=== PATIENT | female | born 1990 | race Caucasian/White ===

== ENCOUNTER → 2021-09-06 18:53 | Outpatient (CLI) | payer SELFPAY | PROVIDERS: Visit Provider Nurse Practitioner Obstetrics & Gynecology | DX: N39.0 Urinary tract infection, site not specified (principal); B96.20 Unspecified Escherichia coli [E. coli] as the cause of diseases classified elsewhere | CPT/HCPCS: 87086; 87088; 87186 ==

== ENCOUNTER → 2022-06-13 09:56 | Outpatient (CLI) | payer OTHER, SELFPAY ==
--- NOTE | 2022-06-13 13:08 | CT_ITS ---
FINAL REPORT TECHNIQUE: Then section axial CT images of the chest were obtained with contrast. Three-D reformatted images were also obtained.This study was performed with techniques to keep radiation doses as low as reasonably achievable (ALARA). Individualized dose reduction techniques using automated exposure control or adjustment of mA and/or kV according to the patient''s size were employed. CLINICAL HISTORY: dyspnea/tachy FINDINGS: There is no evidence of pulmonary embolism. There is no evidence of thoracic aortic aneurysm or dissection. There is no evidence of mediastinal or hilar mass or adenopathy. There is no evidence of pulmonary mass or suspicious nodule. No localized inflammatory process is seen within the lungs. Limited images of the upper abdomen are unremarkable. IMPRESSION: 1. No evidence of pulmonary embolism. 2. No mass or localized inflammatory process. Reviewed, Interpreted and Dictated by Leon Richards III, MD Transcribed by Niraj Do Authenticated and [facility]
--- NOTE | 2022-06-13 14:58 | CA_ITS ---
APPROVED REPORT EXAM: Comprehensive 2D, Doppler, and color-flow Echocardiogram Binding Printer: Dominga Ellison RVT Ht: 5 ft 7 in Wt: 122lbs BSA: 1.64 BP: 138/96 mmHg Indications: PALPS,TACHYCARDIA,HX MVP,ELAM 2D Dimensions LVOT 1.89 cm (M/F) 1.5-2.5 M-Mode Dimensions RVDd 1.42 cm (0.9-2.6) LA Diam 2.72 cm (1.9-4.0) LVDd 4.23 cm (3.5-5.7) Ao Diam 2.70 cm (2.0-3.7) LVDs 2.68 cm (3.5-5.7) IVSd 0.54 cm (0.6-1.1) PWd 0.46 cm (0.6-1.1) EF (Teich) 66.80% FS 36.60% EDV (Teich) 79.90 mL ESV (Teich) 26.50 mL LV Diastology E Decel Time 150.00 (160-240 msec) E/A Ratio 0.9 Aortic Valve AO Peak GR. 3.40 mmHg Mitral Valve MV E Max Mitch. 75.00 (40-130 cm/s) MV A Velocity 87.00 (40-130 cm/s) E/A Ratio 0.86 MV Decel. Time 150.00 (160-240 ms) MV PHT 44.00 ms Pulmonary Valve PV Peak Velocity 65.00 (50-150 cm/s) Left Ventricle Left atrium is normal size, left ventricle is normal size, there is no concentric left ventricular hypertrophy, estimated ejection fraction 55% with no regional wall motion abnormality. Diastolic parameters are inconclusive in the study. Right Ventricle Right atrium and right ventricle are normal size and contractility. Aortic Valve Aortic valve is grossly normal there is no aortic stenosis or aortic insufficiency. Mitral Valve Mitral valve is grossly normal, there is no obvious mitral valve prolapse, there is trace mitral regurgitation. Tricuspid Valve Tricuspid valve is grossly normal, there is trace tricuspid regurgitation, tricuspid regurgitation jet velocity is inadequate for calculation of the right ventricular systolic pressure. Pulmonic Valve Pulmonic valve is poorly visualized. Great Vessels Aortic root is normal size. Inferior vena cava is normal size with normal inspiratory collapse. Pericardium No significant pericardial effusion noted. Conclusion 1. Normal left ventricular size, preserved left ventricular systolic function, estimated ejection fraction 55% with no regional wall motion abnormality, diastolic parameters are within normal range. 2. No obvious mitral valve prolapse seen, there is trace mitral regurgitation. 3. No significant pericardial effusion noted. 4. Inferior vena cava normal size with normal inspiratory collapse. Electronically signed by : Reynaldo Segura MD 06/13/2022 20:37:19
== END ==
PROVIDERS: Visit Provider Nurse Practitioner
DX: R06.00 Dyspnea, unspecified (principal); R00.0 Tachycardia, unspecified
CPT/HCPCS: 71275; 93270; 93306; Q9967

== ENCOUNTER → 2022-06-14 07:06 | Outpatient (CLI) | payer OTHER, SELFPAY ==
[2022-06-14 07:51] LABS: Basophils # 0.1 K/mm3 (0-0.2); Basophils % 1.3 % (0.1-2.0); Eosinophils # 0.1 K/mm3 (0.0-0.4); Eosinophils % 1.1 % (0.1-12.0); Hematocrit 32.4 % (37.0-47.0); Hemoglobin 9.2 g/dL (12.2-16.2); Lymphocytes # 1.8 K/mm3 (0.7-4.5); Lymphocytes % 27.5 % (10-50); Mean Corpuscular HGB Conc 28.4 g/dL (31.8-35.4); Mean Corpuscular Hemoglobin 19.7 pg (27.0-31.2); Mean Corpuscular Volume 69.3 fl (81-99); Mean Platelet Volume 8.3 fl (7.4-10.4); Monocytes # 0.3 K/mm3 (0.1-1.0); Monocytes % 4.7 % (1.7-9.3); Neutrophils # 4.3 K/mm3 (1.8-7.8); Neutrophils % 65.4 % (37.0-80.0); Platelet Count 368 K/mm3 (142-424); Red Blood Count 4.68 M/mm3 (4.20-5.40); Red Cell Distribution Width 18.6 % (11.5-17.5); White Blood Count 6.5 K/mm3 (4.8-10.8)
[2022-06-14 09:42] LABS: Alanine Aminotransferase 12 U/L (12-78); Albumin Level 4.3 g/dl (3.5-5.0); Alkaline Phosphatase 46 U/L (38-126); Anion Gap 17.6 mEq/L (5-15); Aspartate Amino Transferase 22 U/L (14-36); Bilirubin,Direct 0.2 mg/dl (0.0-0.4); Bilirubin,Indirect 0.1 mg/dL (0.0-0.9); Bilirubin,Total 0.3 mg/dl (0.2-1.3); Bilirubin,Unconjugated 0.2 mg/dL (0.0-1.1); Blood Urea Nitrogen 7 mg/dl (7-17); Calcium 9.2 mg/dl (8.4-10.2); Carbon Dioxide 24 mmol/L (22.0-30.0); Chloride 103 mmol/L (98-107); Chol/HDL Ratio 3.8 (1-3.5); Cholesterol 219 mg/dl (140-200); Estimated Glomerular Filt Rate 74 ml/min (>60); GFR (African American) 89 ML/MIN (>60); Glucose 80 mg/dl (74-100); HDL Cholesterol 57 mg/dl (40-60); Magnesium 1.6 mg/dl (1.6-2.3); Potassium 4.6 mmoL/L (3.5-5.1); Sodium 140 mmol/L (136-145); Total Protein,Serum 7.2 g/dl (6.3-8.2); Triglycerides 165 mg/dl (30-150); VLDL Cholesterol 33 mg/dL (0-40)
[2022-06-14 09:52] LABS: Direct LDL Cholesterol 130.54 mg/dL (100-129)
[2022-06-14 10:12] LABS: Thyroid Stimulating Hormone 9.64 uIU/mL (0.465-4.68)
== END ==
PROVIDERS: Visit Provider Nurse Practitioner
DX: R06.00 Dyspnea, unspecified (principal); R00.0 Tachycardia, unspecified
CPT/HCPCS: 36415; 80048; 80061; 80076; 83735; 84439; 84443; 85025

== ENCOUNTER 2022-06-16 13:30 | Outpatient (CLI) | payer OTHER, SELFPAY | END 2022-06-16 14:35 | disposition home or self-care (01) | LOC: OUTP 13:32 | PROVIDERS: Visit Provider Surgery | DX: R13.10 Dysphagia, unspecified (principal); R06.09 Other forms of dyspnea; R00.0 Tachycardia, unspecified | CPT/HCPCS: J1610 ==

== ENCOUNTER → 2022-06-17 07:46 | Outpatient (CLI) | payer OTHER, SELFPAY ==
--- NOTE | 2022-06-17 07:47 | FL_ITS ---
FINAL REPORT CLINICAL HISTORY: .dysphagia fluoro time 2:22 FINDINGS: UPPER GI EXAM HISTORY: Abdominal pain, nausea. PROCEDURE: The patient ingested barium. Spot and overhead films were obtained. FINDINGS: . No esophageal stricture isnotified. There is no hiatal hernia. There is no gastroesophageal reflux. Peristalsis is normal. The stomach empties appropriately. Limited imaging of the duodenal bulb was unremarkable. The patient was unable to swallow a 13 mm barium tablet. FLUOROSCOPY TIME: 2 minutes 22 seconds. 14 radiographs were obtained. IMPRESSION: Unremarkable upper GI. Films reviewed , interpreted and dictated by Dr. Richards. Transcribed by Roberto Raines PA-C. Reviewed, Interpreted and Dictated by Leon Richards III, MD Transcribed by NEREIDA Patel Authenticated and . [facility]
== END ==
LOC: RAD 07:47
PROVIDERS: Visit Provider Surgery
DX: R13.10 Dysphagia, unspecified (principal)
CPT/HCPCS: 74240

== ENCOUNTER → 2022-06-21 07:10 | Outpatient (CLI) | payer OTHER, SELFPAY ==
[2022-06-21 07:41] LABS: Basophils # 0.1 K/mm3 (0-0.2); Basophils % 0.9 % (0.1-2.0); Eosinophils % 0.3 % (0.1-12.0); Hematocrit 30.3 % (37.0-47.0); Hemoglobin 8.9 g/dL (12.2-16.2); Lymphocytes # 1.4 K/mm3 (0.7-4.5); Lymphocytes % 24.8 % (10-50); Mean Corpuscular HGB Conc 29.6 g/dL (31.8-35.4); Mean Corpuscular Hemoglobin 20.1 pg (27.0-31.2); Mean Corpuscular Volume 68.2 fl (81-99); Mean Platelet Volume 8.8 fl (7.4-10.4); Monocytes # 0.3 K/mm3 (0.1-1.0); Monocytes % 4.8 % (1.7-9.3); Neutrophils # 3.9 K/mm3 (1.8-7.8); Neutrophils % 69.2 % (37.0-80.0); Platelet Count 351 K/mm3 (142-424); Red Blood Count 4.44 M/mm3 (4.20-5.40); Red Cell Distribution Width 18.7 % (11.5-17.5); White Blood Count 5.7 K/mm3 (4.8-10.8)
== END ==
PROVIDERS: PCP Internal Medicine; Visit Provider Nurse Practitioner
DX: Z01.818 Encounter for other preprocedural examination (principal); Z20.822 Contact with and (suspected) exposure to COVID-19; D64.9 Anemia, unspecified; R13.10 Dysphagia, unspecified; Z13.810 Encounter for screening for upper gastrointestinal disorder
CPT/HCPCS: 36415; 85025; C9803; U0003; U0005

== ENCOUNTER 2022-06-22 08:04 | Day surgery (SDC) | payer OTHER, SELFPAY ==
[2022-06-21 12:40] VITALS: BMI 18.8
--- NOTE | 2022-06-22 08:08 | P.PN_ITS ---
[facility] Medical History History of gastroesophageal reflux (GERD) History of Holter monitoring Mitral valve prolapse Surgical History History of section History of myringoplasty Hx of tonsillectomy Family History Mother Family history of myocardial infarction Other No significant family history Social History Smoking Status: Never smoker alcohol intake: current substance use type: denies use current occupational status: employed Travel in the last 8 weeks: None [facility] Anesthesia Checklist Structural Data Planned Operative Procedure/s: egd Anesthesia Plan Anesthesia Type: MAC
--- NOTE | 2022-06-22 08:09 | P.PN_ITS ---
[facility] Medical History (Updated 06/21/22 @ 12:46 by June Bower RN) History of gastroesophageal reflux (GERD) History of Holter monitoring Mitral valve prolapse Surgical History (Updated 06/21/22 @ 12:47 by June Bower RN) History of section History of myringoplasty Hx of tonsillectomy Family History (Updated 06/21/22 @ 12:44 by June Bower RN) Mother Family history of myocardial infarction Other No significant family history Social History (Updated 06/21/22 @ 12:41 by June Bower RN) Smoking Status: Never smoker alcohol intake: current substance use type: denies use current occupational status: employed Travel in the last 8 weeks: None [facility] Anesthesia Checklist Patient Identification Patient Identification: Arm Band Structural Data Admitted From: Home Planned Operative Procedure/s: EGD Consent for Planned Operative Procedure(s) Verified: Yes Verified Documents: Surgical Consent NPO Status Verified Time NPO: 00:00 Additional verifications Patient : No Anesthesia Reactions: No Hx Blood Transfusions: No Blood Transfusion Reaction: No Cephalosporin Allergy: No Previous Colonoscopy: No Airway Assessment C-Spine Mobility Assessed: Yes TMJ Mobility Assessed: Yes Dentition: Good Dentition Neurological Assessment Level of Consciousness: Awake, Alert, Appropriate and Follows Commands Hx Seizures: No Numbness or tingling in extremities: No Genitourinary Assessment 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
[2022-06-22 08:15] VITALS: BP 125/88; PULSE 94; RESP 18; TEMP 36.5; O2SAT 100
[2022-06-22 08:22] LABS: Urine Pregnancy, HCG Qual. Negative (Negative)
[2022-06-22 08:53] VITALS: O2SAT 97
--- NOTE | 2022-06-22 09:05 | HMH.SCOPE ---
Procedure: Date: 06/22/22 Patient Date of :: 1990 Procedure Performed:: EGD Indications:: Dysphagia. The patient has clinical history several weeks ago to suggest food impaction. The patient has overall unremarkable barium esophagram. Performing Provider:: Sharan Covarrubias MD Referring Provider:: Mian Copeland MD Sedation:: See RN notes Procedure:: The gastroscope was gently passed through the incisoral orifice into the oral cavity and under direct visualization the esophagus was intubated. The endoscope was passed down the esophagus, through the stomach, and into the duodenum. Color, texture, mucosa, and anatomy of the esophagus, stomach, and duodenum were carefully examined with the scope. Findings:: Oropharynx: normal Esophagus: normal. Biopsies obtained from distal and mid esophagus. Empiric dilatation performed with 56F bougie dilator EG Junction: intact at 40 cm Cardia: normal Fundus: normal Body: normal Antrum: normal Duodenal bulb: normal Duodenum (second and third portion): normal Recommendations:: Await pathology results Follow up with referring provider Complications:: none Estimated blood obtained (mL): 0
[2022-06-22 09:11] VITALS: BP 102/62; PULSE 85; RESP 18; TEMP 36.9; O2SAT 99
[2022-06-22 09:21] VITALS: BP 112/70; PULSE 79; RESP 18; TEMP 36.9; O2SAT 100
[2022-06-22 09:31] VITALS: BP 110/77; PULSE 68; RESP 18; TEMP 36.9; O2SAT 100
[2022-06-22 09:49] VITALS: BP 107/78; PULSE 67; RESP 18; TEMP 36.9; O2SAT 100
== END 2022-06-22 09:50 | disposition home or self-care (01) ==
PROVIDERS: Visit Provider Internal Medicine
PROC: 0DJ08ZZ Inspection of Upper Intestinal Tract, Via Natural or Artificial Opening Endoscopic (ICD-10-PCS; CPT 43235; principal; 2022-06-22 09:00)
DX: R13.10 Dysphagia, unspecified (principal); K21.9 Gastro-esophageal reflux disease without esophagitis; Z79.899 Other long term (current) drug therapy
CPT/HCPCS: 43239; 81025

== ENCOUNTER → 2022-07-12 14:58 | Outpatient (CLI) | payer OTHER, SELFPAY ==
--- NOTE | 2022-07-12 14:58 | US_ITS ---
FINAL REPORT CLINICAL HISTORY: choking/difficulty swallowing. FINDINGS: THYROID ULTRASOUND Sonographic images of the thyroid was obtained. The right lobe of the thyroid measures 4.8 x 1.7 x 1.3 cm. Normal blood flow is noted. The left lobe of the thyroid measures 3.5 x 1.3 x 1.0 cm. Normal blood flow is noted. The isthmus measures 2 mm. IMPRESSION: Heterogeneous echotexture bilaterally with no mass identified. Reviewed, Interpreted and Dictated by Leon Richards III, MD Transcribed by Ni Moffett Authenticated and [facility]
== END ==
PROVIDERS: PCP Physician Assistant; Visit Provider Physician Assistant
DX: R79.89 Other specified abnormal findings of blood chemistry (principal); R13.10 Dysphagia, unspecified; D64.9 Anemia, unspecified; T17.308A Unspecified foreign body in larynx causing other injury, initial encounter
CPT/HCPCS: 76536

== ENCOUNTER → 2022-07-21 09:07 | Outpatient (CLI) | payer OTHER, SELFPAY ==
[2022-07-21 10:44] LABS: Iron 17 ug/dL (37-170)
[2022-07-21 11:11] LABS: Total Iron Binding Capacity 728 ug/dL (265-497)
[2022-07-21 11:20] LABS: Ferritin 2.93 ng/ml (6.24-137)
[2022-07-21 12:09] LABS: Vitamin B12 261 pg/mL (239-931)
[2022-07-21 12:20] LABS: Folate 9.88 ng/mL
== END ==
PROVIDERS: Visit Provider Internal Medicine Medical Oncology
DX: D50.8 Other iron deficiency anemias (principal)
CPT/HCPCS: 36415; 82607; 82728; 82746; 83540; 83550

== ENCOUNTER 2022-07-29 09:37 | Outpatient (CLI) | payer OTHER, SELFPAY ==
[2022-07-29 09:50] VITALS: BP 109/71; PULSE 80; RESP 18; O2SAT 100
[2022-07-29 10:33] VITALS: BP 107/66; PULSE 69; RESP 18
== END 2022-07-29 10:33 | disposition home or self-care (01) ==
LOC: INF 09:39
PROVIDERS: Visit Provider Internal Medicine Medical Oncology
DX: D50.8 Other iron deficiency anemias (principal)
CPT/HCPCS: 96365; J1756

== ENCOUNTER 2022-08-05 10:28 | Outpatient (CLI) | payer OTHER, SELFPAY ==
[2022-08-05 10:45] VITALS: BP 108/75; PULSE 73; RESP 20; TEMP 36.9; O2SAT 98
[2022-08-05 11:30] VITALS: BP 110/74; PULSE 68; RESP 20; TEMP 36.9; O2SAT 95
== END 2022-08-05 11:30 | disposition home or self-care (01) ==
LOC: INF 10:29
PROVIDERS: Visit Provider Internal Medicine Medical Oncology
DX: D50.8 Other iron deficiency anemias (principal)
CPT/HCPCS: 96365; J1756

== ENCOUNTER 2022-08-12 09:04 | Outpatient (CLI) | payer OTHER, SELFPAY ==
[2022-08-12 09:25] VITALS: BP 111/77; PULSE 88; RESP 16
[2022-08-12 10:00] VITALS: BP 112/72; PULSE 77; RESP 16
== END 2022-08-12 10:20 | disposition home or self-care (01) ==
LOC: INF 09:04
PROVIDERS: Visit Provider Internal Medicine Medical Oncology
DX: D50.8 Other iron deficiency anemias (principal)
CPT/HCPCS: 96365; J1756

== ENCOUNTER 2022-08-19 08:20 | Outpatient (CLI) | payer OTHER, SELFPAY ==
[2022-08-19 08:46] VITALS: BP 114/78; PULSE 71; RESP 18; TEMP 36.2; O2SAT 100
[2022-08-19 09:35] VITALS: BP 105/60; PULSE 71; RESP 18; O2SAT 99
== END 2022-08-19 09:35 | disposition home or self-care (01) ==
LOC: INF 08:20
PROVIDERS: Visit Provider Internal Medicine Medical Oncology
DX: D50.9 Iron deficiency anemia, unspecified (principal)
CPT/HCPCS: 96365; J1756

== ENCOUNTER 2022-09-02 11:47 | Outpatient (CLI) | payer OTHER, SELFPAY ==
[2022-09-02 12:10] VITALS: BP 120/66; PULSE 79; RESP 16
[2022-09-02 12:45] VITALS: BP 107/69; PULSE 77; RESP 16
== END 2022-09-02 12:55 | disposition home or self-care (01) ==
LOC: INF 11:48
PROVIDERS: Visit Provider Internal Medicine Medical Oncology
DX: D50.8 Other iron deficiency anemias (principal)
CPT/HCPCS: 96365; J1756

== ENCOUNTER → 2022-09-07 07:58 | Outpatient (CLI) | payer OTHER, SELFPAY | PROVIDERS: Visit Provider Otolaryngology | DX: R06.00 Dyspnea, unspecified (principal); R53.83 Other fatigue | CPT/HCPCS: 36415; 84443 ==

== ENCOUNTER 2022-10-04 10:23 | Outpatient (CLI) | payer OTHER, SELFPAY ==
[2022-10-04 10:25] VITALS: BMI 18.8
--- NOTE | 2022-10-04 10:25 | PC.NURSE ---
1020-collected labs via peripheral stick
[2022-10-04 10:41] LABS: Basophils % 0.6 % (0.1-2.0); Eosinophils % 0.6 % (0.1-12.0); Hematocrit 40.2 % (37.0-47.0); Hemoglobin 12.8 g/dL (12.2-16.2); Lymphocytes # 1.4 K/mm3 (0.7-4.5); Lymphocytes % 20.4 % (10-50); Mean Corpuscular HGB Conc 31.8 g/dL (31.8-35.4); Mean Corpuscular Hemoglobin 28.9 pg (27.0-31.2); Mean Corpuscular Volume 90.8 fl (81-99); Mean Platelet Volume 8.4 fl (7.4-10.4); Monocytes # 0.4 K/mm3 (0.1-1.0); Monocytes % 5.7 % (1.7-9.3); Neutrophils # 4.8 K/mm3 (1.8-7.8); Neutrophils % 72.6 % (37.0-80.0); Platelet Count 250 K/mm3 (142-424); Red Blood Count 4.43 M/mm3 (4.20-5.40); Red Cell Distribution Width 23.4 % (11.5-17.5); White Blood Count 6.7 K/mm3 (4.8-10.8)
[2022-10-04 11:01] LABS: Iron 26 ug/dL (37-170)
[2022-10-04 11:11] LABS: Total Iron Binding Capacity 505 ug/dL (265-497)
[2022-10-04 11:39] LABS: Ferritin 8.63 ng/ml (6.24-137)
== END 2022-10-04 10:25 | disposition home or self-care (01) ==
LOC: INF 10:24
PROVIDERS: Visit Provider Internal Medicine Medical Oncology
DX: D50.9 Iron deficiency anemia, unspecified (principal)
CPT/HCPCS: 36415; 82728; 83540; 83550; 85025

== ENCOUNTER 2022-10-21 09:26 | Outpatient (CLI) | payer OTHER, SELFPAY ==
[2022-10-21 10:28] VITALS: BP 127/75; PULSE 82; RESP 18; O2SAT 99
[2022-10-21 10:40] VITALS: BP 120/76; PULSE 76; RESP 18; O2SAT 99
== END 2022-10-21 10:40 | disposition home or self-care (01) ==
LOC: INF 09:27
PROVIDERS: PCP Family Medicine; Visit Provider Internal Medicine Medical Oncology
DX: D50.9 Iron deficiency anemia, unspecified (principal)
CPT/HCPCS: 96365; J1756

== ENCOUNTER 2022-10-28 14:12 | Outpatient (CLI) | payer OTHER, SELFPAY ==
[2022-10-28 14:45] VITALS: BP 120/81; PULSE 70; RESP 18; TEMP 36.7; O2SAT 100
[2022-10-28 15:27] VITALS: BP 123/72; PULSE 68; RESP 18; O2SAT 99
== END 2022-10-28 15:28 | disposition home or self-care (01) ==
LOC: INF 14:14
PROVIDERS: PCP Family Medicine; Visit Provider Family Medicine
DX: D50.9 Iron deficiency anemia, unspecified (principal); R53.83 Other fatigue
CPT/HCPCS: 96365; J1756

== ENCOUNTER 2022-11-07 14:04 | Outpatient (CLI) | payer OTHER, SELFPAY ==
[2022-11-07 14:25] VITALS: BP 110/66; PULSE 87; RESP 18; O2SAT 100
[2022-11-07 15:00] VITALS: BP 115/68; PULSE 81; RESP 18; O2SAT 100
== END 2022-11-07 15:00 | disposition home or self-care (01) ==
LOC: INF 14:05
PROVIDERS: PCP Family Medicine; Visit Provider Internal Medicine Medical Oncology
DX: D50.9 Iron deficiency anemia, unspecified (principal)
CPT/HCPCS: 96365; J1756

== ENCOUNTER 2022-11-11 10:43 | Outpatient (CLI) | payer OTHER, SELFPAY ==
[2022-11-11 10:55] VITALS: BP 114/71; PULSE 86; RESP 18; O2SAT 100
[2022-11-11 11:30] VITALS: BP 100/68; PULSE 80; RESP 16
== END 2022-11-11 11:40 | disposition home or self-care (01) ==
LOC: INF 10:44
PROVIDERS: PCP Family Medicine; Visit Provider Internal Medicine Medical Oncology
DX: D50.9 Iron deficiency anemia, unspecified (principal)
CPT/HCPCS: 96365; J1756

== ENCOUNTER 2022-11-17 14:11 | Outpatient (CLI) | payer OTHER, SELFPAY ==
[2022-11-17 14:35] VITALS: BP 102/66; PULSE 65; RESP 18; TEMP 36.4; O2SAT 99
[2022-11-17 15:10] VITALS: BP 107/70; PULSE 69; RESP 18
== END 2022-11-17 15:10 | disposition home or self-care (01) ==
LOC: INF 14:11
PROVIDERS: PCP Family Medicine; Visit Provider Internal Medicine Medical Oncology
DX: D50.9 Iron deficiency anemia, unspecified (principal)
CPT/HCPCS: 96365; J1756

== ENCOUNTER → 2022-12-16 13:31 | Outpatient (CLI) | payer OTHER, SELFPAY ==
--- NOTE | 2022-12-16 13:34 | MM_ITS ---
PROCEDURE INFORMATION: Exam: MG Bilateral Screening 3D Mammography Exam date and time: 12/16/2022 1:23 PM Age: 32 years old Clinical indication: Screening mammogram TECHNIQUE: Imaging protocol: Bilateral Screening tomosynthesis and 2D mammography including computer-aided detection (CAD) when performed. COMPARISON: No relevant prior studies available. FINDINGS: MAMMOGRAPHY: Breast composition: The breast is heterogeneously dense, which may obscure small masses. Mass: None. Architectural distortion: No new or suspicious architectural distortion. Calcifications: No new or suspicious calcifications are present Asymmetric density: No new or suspicious asymmetric density is present Skin thickening: None. Axillary adenopathy: None. IMPRESSION: No mammographic evidence of malignancy. Recommend annual screening mammography unless otherwise clinically indicated. ASSESSMENT: BI-RADS category 1: Negative
== END ==
PROVIDERS: PCP Family Medicine; Visit Provider Family Medicine
DX: Z12.31 Encounter for screening mammogram for malignant neoplasm of breast (principal); Z80.3 Family history of malignant neoplasm of breast
CPT/HCPCS: 77063; 77067

== ENCOUNTER 2023-01-31 14:36 | Outpatient (CLI) | payer OTHER, SELFPAY ==
[2023-01-31 14:40] VITALS: BMI 18.8
--- NOTE | 2023-01-31 14:48 | PC.NURSE ---
1448-collected labs via venipuncture stick with butterfly in right ac;pt d/c home
[2023-01-31 14:58] LABS: Basophils % 0.5 % (0.1-2.0); Eosinophils # 0.1 K/mm3 (0.0-0.4); Eosinophils % 1.1 % (0.1-12.0); Hematocrit 43.5 % (37.0-47.0); Hemoglobin 14.3 g/dL (12.2-16.2); Lymphocytes # 1.9 K/mm3 (0.7-4.5); Lymphocytes % 25.7 % (10-50); Mean Corpuscular HGB Conc 32.8 g/dL (31.8-35.4); Mean Corpuscular Hemoglobin 31.9 pg (27.0-31.2); Mean Corpuscular Volume 97.2 fl (81-99); Monocytes # 0.3 K/mm3 (0.1-1.0); Monocytes % 4.6 % (1.7-9.3); Neutrophils # 5.1 K/mm3 (1.8-7.8); Neutrophils % 68.2 % (37.0-80.0); Platelet Count 230 K/mm3 (142-424); Red Blood Count 4.47 M/mm3 (4.20-5.40); Red Cell Distribution Width 12.7 % (11.5-17.5); White Blood Count 7.5 K/mm3 (4.8-10.8)
[2023-01-31 15:26] LABS: Iron 148 ug/dL (37-170)
[2023-01-31 15:35] LABS: Total Iron Binding Capacity 343 ug/dL (265-497)
[2023-01-31 16:04] LABS: Ferritin 54.6 ng/ml (6.24-137)
== END 2023-01-31 14:50 | disposition home or self-care (01) ==
LOC: INF 14:37
PROVIDERS: PCP Family Medicine; Visit Provider Internal Medicine Medical Oncology
DX: D50.9 Iron deficiency anemia, unspecified (principal)
CPT/HCPCS: 36415; 82728; 83540; 83550; 85025

== ENCOUNTER → 2023-08-04 13:28 | Outpatient (CLI) | payer OTHER, SELFPAY ==
--- NOTE | 2023-08-04 13:39 | ECG_ITS ---
APPROVED REPORT Exam: Resting ECG HR:79 bpm ECG Measurements Heart Rate 79 AXES VA 164 P 76 QRSd 100 QRS 86 QT 371 T 75 QTc 406 Conclusion SINUS RHYTHM WITH SINUS ARRHYTHMIA POSSIBLE RIGHT VENTRICULAR CONDUCTION DELAY [RSR (QR) IN V1/V2] BORDERLINE ECG UNCONFIRMED REPORT Electronically signed by : Raphael Baker MD 08/04/2023 21:23:53
== END ==
PROVIDERS: Visit Provider Specialist
DX: Z01.810 Encounter for preprocedural cardiovascular examination (principal); R94.31 Abnormal electrocardiogram [ECG] [EKG]
CPT/HCPCS: 93005

== ENCOUNTER 2023-08-08 12:59 | Outpatient (CLI) | payer OTHER, SELFPAY ==
[2023-08-08 13:03] VITALS: BMI 19.5
--- NOTE | 2023-08-08 13:37 | PC.NURSE ---
1308- cbc, cmp, iron and TIBC, ferritin drawn via butterfly needle in right ac. needle removed and coban applied. pt tolerated well.
[2023-08-08 13:42] LABS: Basophils # 0.1 K/mm3 (0-0.2); Basophils % 0.7 % (0.1-2.0); Eosinophils # 0.1 K/mm3 (0.0-0.4); Eosinophils % 0.7 % (0.1-12.0); Hematocrit 42.8 % (37.0-47.0); Hemoglobin 14.6 g/dL (12.2-16.2); Lymphocytes # 1.9 K/mm3 (0.7-4.5); Lymphocytes % 26.5 % (10-50); Mean Corpuscular HGB Conc 34.2 g/dL (31.8-35.4); Mean Corpuscular Volume 96.4 fl (81-99); Monocytes # 0.3 K/mm3 (0.1-1.0); Monocytes % 4.8 % (1.7-9.3); Neutrophils # 4.8 K/mm3 (1.8-7.8); Neutrophils % 67.3 % (37.0-80.0); Platelet Count 207 K/mm3 (142-424); Red Blood Count 4.44 M/mm3 (4.20-5.40); Red Cell Distribution Width 12.6 % (11.5-17.5); White Blood Count 7.2 K/mm3 (4.8-10.8)
[2023-08-08 13:45] LABS: Chloride 104 mmol/L (98-107); Sodium 139 mmol/L (136-145)
[2023-08-08 13:48] LABS: Alanine Aminotransferase 19 U/L (12-78); Albumin Level 4.7 g/dl (3.5-5.0); Albumin/Globulin Ratio 1.5 (1.1-1.8); Alkaline Phosphatase 40 U/L (38-126); Aspartate Amino Transferase 29 U/L (14-36); Bilirubin,Total 0.3 mg/dl (0.2-1.3); Blood Urea Nitrogen 11 mg/dl (7-17); Calcium 9.3 mg/dl (8.4-10.2); Carbon Dioxide 26 mmol/L (22.0-30.0); Creatinine Clearance Estimated 91 mL/min (50-200); Estimated Glomerular Filt Rate 84 ml/min (>60); GFR (African American) 101 ML/MIN (>60); Globulin 3.2 g/dL (1.3-3.2); Glucose 101 mg/dl (74-100); Iron 116 ug/dL (37-170); Total Protein,Serum 7.9 g/dl (6.3-8.2)
[2023-08-08 13:59] LABS: Total Iron Binding Capacity 410 ug/dL (265-497)
[2023-08-08 14:27] LABS: Ferritin 30.9 ng/ml (6.24-137)
== END 2023-08-08 13:15 | disposition home or self-care (01) ==
LOC: INF 13:01
PROVIDERS: Visit Provider Internal Medicine Medical Oncology
DX: D50.9 Iron deficiency anemia, unspecified (principal); T45.4X Poisoning by, adverse effect of and underdosing of iron and its compounds
CPT/HCPCS: 36415; 80053; 82728; 83540; 83550; 85025

== ENCOUNTER → 2023-09-04 06:21 | Outpatient (CLI) | payer OTHER, SELFPAY ==
--- NOTE | 2023-09-04 06:26 | CT_ITS ---
FINAL REPORT TECHNIQUE: Thin section axial CT images of the left foot with coronal and sagittal reformats were performed. This study was performed with techniques to keep radiation doses as low as reasonably achievable (ALARA). Individualized dose reduction techniques using automated exposure control or adjustment of mA and/or kV according to the patient''s size were employed. CLINICAL HISTORY: left 5th met fracture FINDINGS: There is a chronic fracture of the proximal fifth metatarsal with partial bony fusion along the anterior aspect. However, there is nonfusion of most of the fracture. There is no acute bony abnormality. There are no masses or fluid collections. There are no soft tissue abnormalities. IMPRESSION: Nonfusion of most of the proximal fifth metatarsal fracture with partial bony fusion along the anterior aspect. No acute bony abnormality. Reviewed, Interpreted and Dictated by Leon Richards III, MD Transcribed by Atiya Ricks Authenticated and [facility]
== END ==
LOC: RAD 06:22
PROVIDERS: PCP Internal Medicine Medical Oncology; Visit Provider Podiatrist
DX: M79.672 Pain in left foot (principal); S86.312A Strain of muscle(s) and tendon(s) of peroneal muscle group at lower leg level, left leg, initial encounter; S92.352K Displaced fracture of fifth metatarsal bone, left foot, subsequent encounter for fracture with nonunion
CPT/HCPCS: 73700

== ENCOUNTER 2024-07-17 15:30 | Outpatient (CLI) | payer OTHER, SELFPAY ==
--- NOTE | 2024-07-17 15:56 | PC.NURSE ---
1540 - BLOOD DRAWN FROM RIGHT AC USING BUTTERFLY NEEDLE TO CHECK LABS PER DR VOGT.
[2024-07-17 15:57] LABS: Basophils # 0.1 K/mm3 (0-0.2); Eosinophils # 0.1 K/mm3 (0.0-0.4); Eosinophils % 0.6 % (0.1-12.0); Hematocrit 40.7 % (37.0-47.0); Hemoglobin 13.6 g/dL (12.2-16.2); Lymphocytes % 21.6 % (10-50); Mean Corpuscular HGB Conc 33.5 g/dL (31.8-35.4); Mean Corpuscular Hemoglobin 31.6 pg (27.0-31.2); Mean Corpuscular Volume 94.4 fl (81-99); Mean Platelet Volume 7.8 fl (7.4-10.4); Monocytes # 0.5 K/mm3 (0.1-1.0); Neutrophils # 6.5 K/mm3 (1.8-7.8); Neutrophils % 71.9 % (37.0-80.0); Platelet Count 220 K/mm3 (142-424); Red Blood Count 4.31 M/mm3 (4.20-5.40); Red Cell Distribution Width 12.8 % (11.5-17.5); White Blood Count 9.1 K/mm3 (4.8-10.8)
[2024-07-17 16:04] LABS: Iron 72 ug/dL (37-170)
[2024-07-17 16:14] LABS: Total Iron Binding Capacity 328 ug/dL (265-497)
[2024-07-17 16:41] LABS: Ferritin 18.2 ng/ml (6.24-137)
[2024-07-17 17:52] LABS: Vitamin B12 775 pg/mL (239-931)
== END 2024-07-17 15:45 | disposition home or self-care (01) ==
LOC: LAB 15:31 → INF 15:52
PROVIDERS: PCP Physician Assistant; Visit Provider Internal Medicine Medical Oncology
DX: D64.9 Anemia, unspecified (principal)
CPT/HCPCS: 36415; 82607; 82728; 83540; 83550; 85025

== ENCOUNTER 2024-11-30 19:47 | Emergency (ER) | payer OTHER, SELFPAY ==
[2024-11-30 19:53] VITALS: BP 118/82; PULSE 116; RESP 20; TEMP 36.9; O2SAT 97; BMI 20.3
--- NOTE | 2024-11-30 19:53 | HMH.EDGENADL ---
Discharge Plan Disposition Patient Disposition: Home, Self-Care Condition: Good Prescriptions Prescriptions: New ondansetron 4 mg tablet,disintegrating 4 mg PO Q8H PRN (Reason: nausea and vomiting) 4 Days Qty: 12 0RF No Action cyanocobalamin (vitamin B-12) 1,000 mcg/mL solution 1,000 mcg IM QMONTH Qty: 3 1RF omeprazole 20 mg capsule,delayed release(DR/EC) 20 mg PO DAILY Qty: 90 1RF ferrous sulfate 134 mg (27 mg iron) tablet 134 mg PO Q OTHER DAY Qty: 30 2RF Referrals Follow up/Referrals: Noah Grady DO [Primary Care Provider] - See instructions Activity Restrictions/Add. Instructions Additional Instructions/Restrictions: You can take Tylenol and ibuprofen every 6 hours as needed to help with symptoms. You are being prescribed Zofran to help with nausea and vomiting. Take this as prescribed. Follow with your primary care physician if symptoms do not improve over the next week. If you develop any new or worsening symptoms, such as increasing shortness of breath, chest pain, or if you become concerned for your health for any reason, return to the emergency department for evaluation Clinical Impressions Clinical Impression: Headache, Nausea, Cough Print Language Print Language: Emirati Discharge ED Provider: Lito Mustafa General Adult HPI General Chief complaint: Upper Respiratory Infection Stated complaint: CARIAS, weak, dizzy Time Seen by Provider: 11/30/24 19:53 History of Present Illness HPI narrative: Martha Flower is a 34-year-old female with a history of mitral valve prolapse who presents to the emergency department for complaints of flulike symptoms. Patient states that her tested positive for flu a yesterday in the emergency department. Last night, she developed a dry cough and today has a pressure-like headache throughout her head that has been refractory to Enedelia-Pla[place] and Robitussin. She is also had a decreased appetite and some nausea. She reports continued cough that is dry. At times, she feels lightheaded but has not passed out and has not had any chest pain, shortness of breath abdominal pain or vomiting. Related Data Previous Rx's ?Medication ?Instructions ?Recorded cyanocobalamin (vitamin B-12) 1,000 mcg IM QMONTH #3 mL 07/17/24 1,000 mcg/mL injection solution ferrous sulfate 134 mg (27 mg 134 mg PO Q OTHER DAY #30 tabs 09/19/24 iron) tablet omeprazole 20 mg capsule,delayed 20 mg PO DAILY GERD #90 caps 09/19/24 release ondansetron 4 mg disintegrating 4 mg PO Q8H PRN nausea and 11/30/24 tablet vomiting 4 days #12 tabs Allergies Allergy/AdvReac Type Severity Reaction Status Date / Time Penicillins Allergy Intermediate Rash Verified 09/19/24 10:28 [facility] Disclaimer: The information contained in this section may have been updated after the patient was seen, as this information can be updated by other users. Medical History (Updated 11/30/24 @ 20:05 by Lito Mustafa MD) Abnormal Pap smear of cervix GERD (gastroesophageal reflux disease) History of Holter monitoring Mitral valve prolapse Surgical History (Updated 09/19/24 @ 10:46 by Norma Liriano CMA) H/O adenoidectomy History of placement of ear tubes History of myringoplasty Hx of tonsillectomy History of section Family History Mother Family history of myocardial infarction Cancer, Onset Age: 30 Breast cancer Social History Smoking Status: Never smoker alcohol intake: never substance use type: denies use current occupational status: employed Travel in the last 8 weeks: None marital status: number of children: 2 Have you lived/traveled outside [place] in past 30 days?: No Contact w/someone who lives/traveled outside US past 30 days?: No Exposure to someone with infectious disease in past 14 days?: No Do you have a fever (greater than 100.4 F or 38 C)?: Yes Have you tested positive for COVID-19: No Exposed to someone with COVID-19 in past 14 days?: No Do you have a sore throat?: No Do you have a cough?: No Do you have any weakness?: Yes Do you have any diarrhea?: No Are you experiencing any unusual bleeding?: No Do you have any muscle aches/pain?: No Do you have any abdominal pain?: No Are you experiencing loss of taste or smell?: No Other Medical History Have you received the Flu Vaccine for this season: No Have you received the Pneumonia Vaccine: No ROS Obtained: Yes Systems reviewed as appropriate & no additional complaints except as documented Physical Exam General General appearance: alert and in no apparent distress Comment: Ill but nontoxic-appearing Head Head exam: atraumatic Eye Eye exam: Present normal appearance ENT ENT exam: Present normal external ear exam Neck Neck exam: Present full ROM Chest Chest inspection: Present symmetric chest wall rise Respiratory Respiratory exam: Present normal lung sounds bilaterally; Absent respiratory distress Cardiovascular Cardiovascular exam: Present regular rate and normal rhythm Abdominal Exam Abdominal exam: Present soft; Absent tenderness or guarding Extremities Exam Extremities exam: Present normal inspection Back Exam Back exam: Present normal inspection Neurological Exam Neurological exam: Present alert and oriented X3 Psychiatric Psychiatric exam: Present normal affect Skin Skin exam: Present warm and dry Medical Decision Making Medical Records Screening: Per USPSTF and CDC recommendations, given the prevalence of disease in our region, it is our hospital?s policy to screen for HIV and viral Hepatitis for all patients aged 18 and over and those with ongoing risk factors. Booker Inquiry Pt receiving controlled substance: No Vital Signs: 11/30/24 19:53 11/30/24 20:24 Temperature 98.4 F 98.4 F Temperature Source Oral Oral Pulse Rate 68 Pulse Rate [Right Brachial] 116 H Respiratory Rate 20 20 Blood Pressure 100/74 L Blood Pressure [Right Arm] 118/82 Blood Pressure Mean [Right Arm] 94 Blood Pressure Source Automatic Cuff Blood Pressure Source [Right Arm] Automatic Cuff Blood Pressure Position Supine Blood Pressure Position [Right Arm] Sitting 02 Sat by Pulse Oximetry 97 98 Oxygen Delivery Method Room Air Room Air Orders (Tests/Meds): ED MEDICATIONS Discontinued Medications Generic Name Dose Route Start Last Admin Trade Name Delta PRN Reason Stop Dose Admin Acetaminophen 1,000 mg 11/30/24 19:58 11/30/24 20:07 Acetaminophen 500mg Tab PO 11/30/24 19:59 1,000 mg ONCE ONE Administration Ibuprofen 800 mg 11/30/24 19:58 11/30/24 20:07 Ibuprofen 800 Mg Tablet PO 11/30/24 19:59 800 mg ONCE ONE Administration Ondansetron HCl 4 mg 11/30/24 19:58 11/30/24 20:07 Ondansetron 4mg Odt SL 11/30/24 19:59 4 mg ONCE ONE Administration ORDERS Category Date Time Status HIV Combo Routine Lab 11/30/24 19:55 Ordered Hepatitis C Ab Qual. W/ RFX Routine Lab 11/30/24 19:55 Ordered Medical Decision Narrative: Martha Flower is a 34-year-old female with a history of mitral valve prolapse who presents to the emergency department for complaints of flulike symptoms. Patient states that her tested positive for flu a yesterday in the emergency department. Last night, she developed a dry cough and today has a pressure-like headache throughout her head that has been refractory to Enedelia-[place] and Robitussin. She is also had a decreased appetite and some nausea. She reports continued cough that is dry. At times, she feels lightheaded but has not passed out and has not had any chest pain, shortness of breath abdominal pain or vomiting. On arrival, patient is tachycardic but breathing comfortably on room air with oxygen saturation at 97% SpO2. Normotensive. Physical exam, stated above, revealed overall well-appearing female in no distress. Breath sounds are normal bilaterally. On my exam, patient's tachycardia had resolved. Abdomen is soft, nontender nondistended. Her mucous membranes are moist. Differential diagnosis includes, but is not limited to: Viral respiratory illness, pneumonia, tension headache, among others. There is low concern for pulmonary embolism at this time as patient is not having any chest pain or shortness of breath. Lab work was considered, however patient symptomatology is most consistent with viral respiratory illness in the setting of her being flu positive. There is low utility in obtaining viral swab at this time as it would not change ED management. Chest x-ray was also considered, however patient's breath sounds are clear and she is afebrile and there is low concern for bacterial pneumonia. The risk of radiation exposure outweighs the potential benefits. On reassessment, patient's heart rate had improved to 60 bpm and blood pressure 100/74. This was discussed with the patient and she was in agreement with this plan. Will treat her symptoms with Tylenol 1000 mg oral, 800 mg oral ibuprofen, and 4 mg of Zofran ODT. At this time, her vital signs have improved and she is appropriate for discharge with prescription for Zofran and symptomatic control at home. Critical Care Critical Care Time Critical Care Time: No
--- NOTE | 2024-11-30 19:56 | PC.NURSE ---
Pt awake alert and oriented Skin pink warm and dry Resp full and easy Speech clear and appropriate. Report given to Amaya GARCIA
[2024-11-30] MEDS: ONDANSETRON 4MG ODT 4 MG SL (20:07)
[2024-11-30] MEDS: ACETAMINOPHEN 500MG TAB 1000 MG PO (20:07)
[2024-11-30] MEDS: IBUPROFEN 800 MG TABLET PO (20:07)
[2024-11-30 20:24] VITALS: BP 100/74; PULSE 68; RESP 20; TEMP 36.9; O2SAT 98
[2024-11-30 20:39] VITALS: PULSE 63; O2SAT 97
[2024-11-30 20:47] VITALS: BP 103/74; PULSE 61; RESP 20; TEMP 36.9; O2SAT 97
== END 2024-11-30 20:48 | disposition home or self-care (01) ==
PROVIDERS: Emergency Provider Student in an Organized Health Care Education/Training Program; PCP Internal Medicine
DX: R51.9 Headache, unspecified (principal); R11.0 Nausea; R05.9 Cough, unspecified
CPT/HCPCS: 99283; Q0162

== ENCOUNTER 2024-12-20 09:33 | Outpatient (CLI) | payer OTHER, SELFPAY ==
[2024-12-20 10:05] LABS: Adenovirus F 40/41, stool Not Detected (NotDetected); Astrovirus Not Detected (NotDetected); Campylobacter Not Detected (NotDetected); Clostridium Difficile A/B, PCR Not Detected (NotDetected); Cryptosporidium Not Detected (NotDetected); Cyclospora Cayetanesis Not Detected (NotDetected); Entamoeba histolytica Not Detected (NotDetected); Enteroaggregative E coli Not Detected (NotDetected); Enteropathogenic E coli Not Detected (NotDetected); Enterotoxigenic E coli Not Detected (NotDetected); Giardia lamblia Not Detected (NotDetected); Plesimonas Shigalloides, PCR Not Detected (NotDetected); Rotavirus A Not Detected (NotDetected); Salmonella, PCR Not Detected (NotDetected); Sapovirus Not Detected (NotDetected); Shiga-like toxin E coli Not Detected (NotDetected); Shigella Enterovasive E coli Not Detected (NotDetected); Vibrio Cholerae Not Detected (NotDetected); Vibrio, PCR Not Detected (NotDetected); Yersinia Entercolitica, PCR Not Detected (NotDetected)
[2024-12-21 16:07] LABS: Norovirus Detected (NotDetected)
[2024-12-23 17:12] LABS: Calprotectin, Fecal 150 ug/g (0-120)
== END 2024-12-20 23:59 | disposition home or self-care (01) ==
LOC: LAB 09:34
PROVIDERS: PCP Internal Medicine; Visit Provider Internal Medicine Gastroenterology
DX: R19.7 Diarrhea, unspecified (principal)
CPT/HCPCS: 83993; 87506

== ENCOUNTER 2024-12-31 06:44 | Outpatient (CLI) | payer OTHER, SELFPAY ==
[2024-12-31 07:29] LABS: Basophils % 0.4 % (0.1-2.0); Eosinophils % 0.6 % (0.1-12.0); Hematocrit 42.5 % (37.0-47.0); Hemoglobin 14.2 g/dL (12.2-16.2); Lymphocytes # 1.5 K/mm3 (0.7-4.5); Lymphocytes % 21.3 % (10-50); Mean Corpuscular HGB Conc 33.4 g/dL (31.8-35.4); Mean Corpuscular Hemoglobin 31.8 pg (27.0-31.2); Mean Corpuscular Volume 95.3 fl (81-99); Mean Platelet Volume 10.1 fl (7.4-10.4); Monocytes # 0.6 K/mm3 (0.1-1.0); Monocytes % 8.2 % (1.7-9.3); Neutrophils % 69.2 % (37.0-80.0); Platelet Count 237 K/mm3 (142-424); Red Blood Count 4.46 M/mm3 (4.20-5.40); Red Cell Distribution Width 12.9 % (11.5-17.5); White Blood Count 7.2 K/mm3 (4.8-10.8)
[2024-12-31 07:44] LABS: Chol/HDL Ratio 3.6 (1-3.5); Cholesterol 181 mg/dl (140-200); HDL Cholesterol 50 mg/dl (40-60); Triglycerides 76 mg/dl (30-150); VLDL Cholesterol 15 mg/dL (0-40)
[2024-12-31 07:55] LABS: Direct LDL Cholesterol 102.16 mg/dL (100-129)
== END 2024-12-31 23:59 | disposition home or self-care (01) ==
LOC: LAB 06:45
PROVIDERS: PCP Internal Medicine; Visit Provider Internal Medicine
DX: Z00.00 Encounter for general adult medical examination without abnormal findings (principal); Z13.220 Encounter for screening for lipoid disorders
CPT/HCPCS: 80061; 85025